=== PATIENT | male | born 1985 | race Caucasian/White ===

== ENCOUNTER 2019-10-05 14:29 | Inpatient (IN) | payer OTHER ==
[2019-10-05] MEDS ORDERED: LORazepam 1 MG TAB PO STA (14:44)
--- NOTE | 2019-10-05 14:56 | ED ---
Psych HPI - General Chief Complaint: Psychiatric Symptoms Stated Complaint: Hallucinations Time Seen by Provider: 10/05/19 14:32 Source: patient, EMS Mode of arrival: EMS - History of Present Illness Initial Comments: 34-year-old male presents today for chief complaint of paranoid behavior, hallucinations. Patient states he did meth a few days ago he states he has been paranoid and "tweeking" since. Patient states he is depressed. It was reported by EMS that family states he was seeing/hearing things that have not been present. Patient states he felt similar to this when he was on [employer] work when he did meth. Patient has no chest pain, SOB, nausea, vomiting, abdominal pain, headache, Denies head trauma or falls. Patient denies any other drug use. Remaining ROS (-). Upon arrival patient speaking rapidly, rapid hand movements appears acute psychotic. - Related Data Allergies Allergy/AdvReac Type Severity Reaction Status Date / Time No Known Allergies Allergy Verified 10/05/19 14:50 Review of Systems ROS Statement: Those systems with pertinent positive or pertinent negative responses have been documented in the HPI. ROS Other: All systems not noted in ROS Statement are negative. Past Medical History Smoking Status: Current every day smoker Past Alcohol Use History: Daily Past Drug Use History: Opiates General Exam - General Exam Comments Initial Comments: General: The patient is awake and alert, in no distress Eye: +3 mm pupils are equal, round and reactive to light, extra-ocular movements are intact. No nystagmus. There is normal conjunctiva bilaterally. No signs of icterus. Ears, nose, mouth and throat: There are moist mucous membranes and no oral lesions. Neck: The neck is supple, there is no tenderness or JVD. Cardiovascular: There is a regular rate and rhythm. No murmur, rub or gallop is appreciated. Respiratory: Lungs are clear to auscultation, respirations are non-labored, breath sounds are equal. No wheezes, stridor, rales, or rhonchi. Gastrointestinal: Soft, non-distended, non-tender abdomen without masses or organomegaly noted. There is no rebound or guarding present. Musculoskeletal: Normal ROM, no tenderness. Strength 5/5. Sensation intact. Radial pulses equal bilaterally 2+. Neurological: A&O x 3. CN II-XII intact grossly, There are no obvious motor or sensory deficits. Coordination appears grossly intact. Speech is normal. Skin: Skin is warm and dry and no rashes. Psychiatric: Cooperative, but pacing, talking to and threatening man that does not exist Limitations: altered mental status Course Vital Signs 10/05/19 10/05/19 10/05/19 14:37 14:45 15:45 Temperature 98.5 F Pulse Rate 104 H Respiratory 22 20 20 Rate Blood Pressure 148/77 O2 Sat by Pulse 100 Oximetry 10/05/19 10/05/19 10/05/19 16:45 17:00 18:00 Temperature Pulse Rate 93 Respiratory 20 20 18 Rate Blood Pressure 137/82 O2 Sat by Pulse 98 Oximetry Medical Decision Making - Medical Decision Making 34-year-old male presenting with his ventilations he admits to drug use however appears very irrational and playful speaking to the wall. He mentioned how he wanted to hurt the person he was talking to "wall"--stating hes making me made and TRUDI what i will do. Concern for safety of others/self. Patient signed in [facility] untarily for psychiatric treatment. Patient transferred to psychiatry floor for further evaluation/safety planning. - Lab Data Lab Results 10/05/19 Range/Units 18:10 Urine Opiates Screen Not Detected (NotDetected) Ur Oxycodone Screen Not Detected (NotDetected) Urine Methadone Screen Not Detected (NotDetected) Ur Propoxyphene Screen Not Detected (NotDetected) Ur Barbiturates Screen Not Detected (NotDetected) U Tricyclic Antidepress Not Detected (NotDetected) Ur Phencyclidine Scrn Not Detected (NotDetected) Ur Amphetamines Screen Detected H (NotDetected) U Methamphetamines Scrn Detected H (NotDetected) U Benzodiazepines Scrn Not Detected (NotDetected) Urine Cocaine Screen Detected H (NotDetected) U Marijuana (THC) Screen Not Detected (NotDetected) Disposition Clinical Impression: Acute psychosis Disposition: TRANSFER TO PSYCH HOSP/UNIT Condition: Serious Is patient prescribed a controlled substance at d/c from ED?: No Time of Disposition: 18:50 Decision to Admit Reason: Admit from EC Decision Date: 10/05/19 Decision Time: 18:50
[2019-10-05 18:30] LABS: Appearance,Urine Clear (Clear); Bilirubin,Urine Negative (Negative); Blood,Urine Small (Negative); Color,Urine Yellow; Glucose,Urine (UA) Negative (Negative); Ketones,Urine 2+ (Negative); Leukocyte Esterase,Urine Negative (Negative); Mucus,Urine Rare /hpf; Nitrite,Urine Negative (Negative); PH, Urine 5.5 (5.0-8.0); Protein,Urine 1+ (Negative); RBC,Urine 1 /hpf (0-5); Specific Gravity,Urine 1.033 (1.001-1.035); Urobilinogen,Urine <2.0 mg/dL (<2.0); WBC,Urine 5 /hpf (0-5)
[2019-10-05 18:45] LABS: Amphetamine Screen,Urine Detected (NotDetected); Barbiturate Screen,Urine Not Detected (NotDetected); Benzodiazepines Screen,Urine Not Detected (NotDetected); Cocaine Screen,Urine Detected (NotDetected); Methadone Screen, Urine Not Detected (NotDetected); Opiate Screen,Urine Not Detected (NotDetected); Oxycodone Screen, Urine Not Detected (NotDetected); Phencyclidine Screen,Urine Not Detected (NotDetected); Tricyclic Antidepressant,Urine Not Detected (NotDetected); Urn Cannabinoid Scrn Not Detected (NotDetected)
[2019-10-05] MEDS ORDERED: MAGNESIUM HYDROXIDE 2,400 MG/10 ML CUP PO PRN (19:43)
[2019-10-05] MEDS ORDERED: ACETAMINOPHEN TAB 325 MG TAB PO PRN (19:43)
[2019-10-05] MEDS ORDERED: MAG HYDROX/AL HYDROX/SIMETH 30 ML CUP PO PRN (19:43)
[2019-10-05] MEDS ORDERED: ZIPRASIDONE 20 MG VIAL IM PRN (19:43)
[2019-10-05] MEDS: NICOTINE 21MG/24HR PATCH TRANSDERM SCH (23:58)
--- NOTE | 2019-10-06 00:29 | P.PN ---
Progress Note - Text Progress Note Date: 10/05/19 patient did not cooperate with the interview, refused to talk and was totally ignoring me in the room and continued to sleep please notify [facility] when patient is more cooperative
[2019-10-06] MEDS: NICOTINE 21MG/24HR PATCH TRANSDERM SCH (08:54)
[2019-10-06] MEDS: LORazepam 1 MG TAB PO PRN ×2 (08:54→18:14)
--- NOTE | 2019-10-06 15:43 | P.HP ---
Psychiatric H&P - . H&P Date: 10/06/19 History & Physical: Allergies Allergy/AdvReac Type Severity Reaction Status Date / Time No Known Allergies Allergy Verified 10/05/19 19:50 Vital Signs Temp 99.3 F 10/06/19 13:00 Pulse 89 10/06/19 06:41 Resp 14 10/06/19 06:41 BP 117/58 10/06/19 06:41 Pulse Ox 96 10/05/19 19:06 Intake & Output 10/05/19 10/06/19 10/06/19 18:59 06:59 18:59 Weight 74.843 kg 68.181 kg Laboratory Last Values Urine Color Yellow 10/05/19 18:10 Urine Appearance Clear (Clear) 10/05/19 18:10 Urine pH 5.5 (5.0-8.0) 10/05/19 18:10 Ur Specific [place] 1.033 (1.001-1.035) 10/05/19 18:10 Urine Protein 1+ (Negative) H 10/05/19 18:10 Urine Glucose (UA) Negative (Negative) 10/05/19 18:10 Urine Ketones 2+ (Negative) H 10/05/19 18:10 Urine Blood Small (Negative) H 10/05/19 18:10 Urine Nitrite Negative (Negative) 10/05/19 18:10 Urine Bilirubin Negative (Negative) 10/05/19 18:10 Urine Urobilinogen <2.0 mg/dL (<2.0) 10/05/19 18:10 Ur Leukocyte Esterase Negative (Negative) 10/05/19 18:10 Urine RBC 1 /hpf (0-5) 10/05/19 18:10 Urine WBC 5 /hpf (0-5) 10/05/19 18:10 Urine Mucus Rare /hpf (None) H 10/05/19 18:10 Urine Opiates Screen Not Detected (NotDetected) 10/05/19 18:10 Ur Oxycodone Screen Not Detected (NotDetected) 10/05/19 18:10 Urine Methadone Screen Not Detected (NotDetected) 10/05/19 18:10 Ur Propoxyphene Screen Not Detected (NotDetected) 10/05/19 18:10 Ur Barbiturates Screen Not Detected (NotDetected) 10/05/19 18:10 U Tricyclic Antidepress Not Detected (NotDetected) 10/05/19 18:10 Ur Phencyclidine Scrn Not Detected (NotDetected) 10/05/19 18:10 Ur Amphetamines Screen Detected (NotDetected) H 10/05/19 18:10 U Methamphetamines Scrn Detected (NotDetected) H 10/05/19 18:10 U Benzodiazepines Scrn Not Detected (NotDetected) 10/05/19 18:10 Urine Cocaine Screen Detected (NotDetected) H 10/05/19 18:10 U Marijuana (THC) Screen Not Detected (NotDetected) 10/05/19 18:10 IDENTIFYING DATA: 34-year-old male patient HPI: Patient admitted to the inpatient psychiatric unit at [facility] on a voluntary basis with concerns of psychosis like symptoms. Patient states that on Tuesday he went to his friend's house and was drinking and also used meth he says he hasn't slept since Tuesday. He does state that he slept some yesterday and last night. Says Tuesday was the last time that he used meth. He reports that his kids mom's mom called for him to get help. He says that he asked her to call. He relates that he was having paranoid type thinking and was feeling people were out to get him. He also makes reference to having seen snipers in the trees and asked if they wanted him to go smack them. He says that he was saying these things and they were telling him that they weren't real. He says he made a promise to his family to quit drugs prior to being admitted. He makes reference that he was asking for his discharge papers in the emergency room and feels like he was tricked in the emergency room. We discussed the voluntary process and right to sign an intent to leave and that process at length. PAST PSYCHIATRIC HISTORY: He relays a history of ADHD. He had one hospitaliz ation in [place] which was a similar episode that was meth related. At that time he thought he was running from the police. He does have some history of taking extra Adderall. No known history of psychotropic medication other than when he took Seroquel on the street, which seemed to make him tired. PMH: Denies any significant medical problems ALLERGIES: No known ALLERGIES MEDICATIONS: Tylenol when necessary, Maalox when necessary, Ativan when necessary, milk of magnesia when necessary, Habitrol patch, Geodon when necessary CHEMICAL DEPENDENCY HISTORY: Patient relays that he doesn't history of cocaine use, makes reference to spending 5 years in skilled nursing. He recently used some heroin and cocaine and used meth on Tuesday. He has been to rehab a few times. FAMILY PSYCHIATRIC HISTORY: Says mom with schizophrenia, depression and bipolar disorder. He relays Brother with history of hearing voices. FAMILY CHEMICAL DEPENDENCY HISTORY: None known at this time. SOCIAL HISTORY: Currently lives with his kids were 2 and 4 in their mom. 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 He is not on disability. MENTAL STATUS EXAM: He is alert and overall cooperative with the interview. He does not show any significant degree of agitation. His mood is described as "calm." He denies any thoughts of harm to self or others. He denies any current thoughts that people are out to get him. He denies any auditory or visual hallucinations. He does describe feeling as though he was tricked in the emergency room. Cognitively appears to be grossly intact. I do not notice any significant disorientation or memory disturbance. His insight has some limitations, judgment shows evidence of recent impairment. Thought processes do show some disorganization at times during the session. STRENGTHS/WEAKNESSES: Strengths-some support; weaknesses-substance use, coping skills INTELLECTUAL FUNCTIONING: Average IMPRESSIONS: Unspecified psychotic disorder, rule out secondary to substance use PLAN: Patient will be admitted to the inpatient psychiatric unit [facility] on a voluntary basis. As above, We did discuss the voluntary process and right to sign an intent to leave and that process at length. He does seem agreeable to initiate psychotropic medication Abilify. Psychosis symptoms currently improved, we'll initiate Abilify to continue to help with any residual psychosis symptoms as well as prevent any reemergence of psychosis symptoms. We'll look into any support substance. Baseline laboratory workup done the patient and medical consultation will be ordered. He is placed on SP 15 minute precautions. Estimated length of stay is 3-5 days. Prognosis is guarded. 10/06/19 15:31
[2019-10-06] MEDS: ARIPiprazole 5 MG TAB PO SCH (15:45)
[2019-10-07 06:30] VITALS: RESP 17
[2019-10-07] MEDS: NICOTINE 21MG/24HR PATCH TRANSDERM SCH (08:21)
[2019-10-07] MEDS: ARIPiprazole 5 MG TAB PO SCH (08:21)
[2019-10-07] MEDS: LORazepam 1 MG TAB PO PRN ×2 (08:22→18:16)
--- NOTE | 2019-10-07 15:31 | P.PN ---
Progress Note - Text Progress Note Date: 10/07/19 Interval history: Patient is seen in cross coverage today. He reports that he slept well last night. He seems to be eating very well. He has had contact with his significant other and kids. He is taking the psychotropic medication and does not voice any adverse psychotropic medication side effects. Mental status exam: He is alert and cooperative with the interview. His thought processes are organized. His mood is described as fine. He denies any thoughts of harm to self or others. He denies any hallucinations. He is denying any bothersome or paranoid type thoughts. He does not display any agitation. Plan: Patient will be maintained on current dose of Abilify. Continue to mo nitor for side effects and monitor his ongoing response to treatment.
[2019-10-08] MEDS: LORazepam 1 MG TAB PO PRN ×2 (08:29→18:41)
[2019-10-08] MEDS: NICOTINE 21MG/24HR PATCH TRANSDERM SCH (08:29)
[2019-10-08] MEDS: ARIPiprazole 5 MG TAB PO SCH (08:29)
--- NOTE | 2019-10-08 12:38 | P.PN ---
Progress Note - Text Progress Note Date: 10/08/19 Interval History: Patient was seen wandering the hallways and was directable and agreeable to marissa finnegan with remote mortgage underwriter in the office. Patient claims that his mood has been gradually improving over the weekend. He states that he feels guilty about what he is done with referring to the events that led him to come in the hospital. He explained about "going back to meth" and stated that he was using approximately 2 g per day with his friend in [place] and claims that he had a "bad trip". He states that the hallucinations have been gradually improving on the medication and states that he is feeling less depressed. He states that he has been trying to go to groups and work on his coping skills. [facility] spoke with him about rehab and other treatment programs and patient declined at this time and states that he does not have a drug problem. He claims that he has slept better last night and has a fair appetite. At this time patient denies any suicidal or homical ideations, intent or plan. Patient denies any auditory, visual hallucinations and denies any paranoia or delusions. Patient denies any side effects from the medications and has been compliant with meds. Mental Status Exam: General Appearance: Patient appears to be tall/thin, stated age is alert, directable, and attempts to be cooperative. Improving hygiene. Behavior: Patient is calmly seated without any agitated behavior. Speech: Patient's speech is fluent and nonpressured. Soft tone. Mood/Affect: Mood is improving mildly, affect is congruent and constricted. Suicidality/Homicidality: Patient denies having any suicidal or homicidal ideation intent or plan. Perceptions: Patient denies any visual hallucinations and denies any auditory hallucinations Though content/process: There is no evidence of any delusional thought content and thought process is linear and goal-directed. Minimizes symptoms and drug use. Memory and concentration: AOX3, grossly intact for the purposes of this session Judgment and insight: Improving mildly Assessment Acute psychosis unspecified, rule out substance-induced psychotic episode. Methamphetamine abuse Cocaine abuse Cannabis use disorder Nicotine dependence Plan: -Patient continues to meet criteria for inpatient psychiatric admission for symptom stabilization and safety. Patient has signed adult voluntary form and medication consent and was placed in patient's chart. Patient signed a AMA form yesterday which will end on 10/10/2019. -Medications: Continue with Abilify 5 mg daily for mood stabilization/psychosis. -When necessary Ativan and Geodon for agitation/aggression. -NRT - nicotine patch -SW on board for discharge planning. Encouraged the patient to participate in milieu. [facility] offered patient rehab or other substance use services however patient declined at this time. Likely discharge tomorrow.
--- NOTE | 2019-10-08 15:53 | XR ---
EXAMINATION TYPE: XR chest 1V portable DATE OF EXAM: 10/08/2019 COMPARISON: NONE HISTORY: Cough TECHNIQUE: Single frontal view of the chest is obtained. FINDINGS: There is no focal air space opacity, pleural effusion, or pneumothorax seen. The cardiac silhouette size is within normal limits. The osseous structures are intact. IMPRESSION: 1. No acute process.
[2019-10-09] MEDS: LORazepam 1 MG TAB PO PRN (03:09)
[2019-10-09 06:44] VITALS: BP 113/64; PULSE 82; TEMP 98.5
[2019-10-09] MEDS: ARIPiprazole 5 MG TAB PO SCH (08:53)
[2019-10-09] MEDS: NICOTINE 21MG/24HR PATCH TRANSDERM SCH (08:53)
--- NOTE | 2019-10-09 09:41 | P.DS ---
Providers Date of admission: 10/05/19 18:28 Expected date of discharge: 10/09/19 Attending physician: Bear Conteh MD Consults: 10/05/19 19:43 Consult Physician Routine Consulting Provider: Too Marcelo Consult Reason/Comments: H & P and medical care Do you want consulting provider notified?: Yes Primary care physician: Stated None - Discharge Diagnosis(es) (1) Acute psychosis Current Visit: Yes Status: Acute Priority: High (2) Methamphetamine abuse Current Visit: Yes Status: Acute Priority: Medium (3) Cocaine abuse Current Visit: Yes Status: Acute Priority: Medium (4) Cannabis use disorder, mild, abuse Current Visit: Yes Status: Acute Priority: Low (5) Nicotine dependence Current Visit: Yes Status: Acute Priority: Low Hospital Course: Admission HPI: Admission note was completed by Dr. Magaña "34-year-old male patient. Patient admitted to the inpatient psychiatric unit at [facility] on a voluntary basis with concerns of psychosis like symptoms. Patient states that on Tuesday he went to his friend's house and was drinking and also used meth he says he hasn't slept since Tuesday. He does state that he slept some yesterday and last night. Says Tuesday was the last time that he used meth. He reports that his kids mom's mom called for him to get help. He says that he asked her to call. He relates that he was having paranoid type thinking and was feeling people were out to get him. He also makes reference to having seen snipers in the trees and asked if they wanted him to go smack them. He says that he was saying these things and they were telling him that they weren't real. He says he made a promise to his family to quit drugs prior to being admitted. He makes reference that he was asking for his discharge papers in the emergency room and feels like he was tricked in the emergency room. We discussed the voluntary process and right to sign an intent to leave and that process at length." Hospital course: Upon admission to the unit patient was initially psychotic and paranoid however was directable and agreeable to commence treatment. Patient signed voluntary form initially for his admission however after 2 days patient signed AMA. Patient got along well with other patients on the unit and followed unit protoco l. Patient was compliant with the medications and denied any side effects throughout hospital course. Patient was started on Abilify and titrated up to dose of 5 mg daily for mood stabilization/psychosis. Patient spoke of his stressors and engaged in therapy both group and individual. Patient was also seen by medical team for history and physical exam. Patient had a chest x-ray done for cough which did not show any acute process. Throughout the course of the hospitalization patient gradually improved with regards to mood, psychosis, sleep and became future oriented with improved insight and judgment. On the day of discharge patient denied any suicidal or homicidal ideations intent or plan denied any auditory or visual hallucinations. Patient endorsed wanting to live for his health and his family. The patient denied any access to guns or weapons. Patient denied any paranoia and did not endorse any delusions. Patient does have a significant history of substance abuse and was counseled on abstaining from all substances including alcohol and marijuana. Patient declined wanting to go to rehab for substance use however did inquire about obtaining a sponsor and other resources in the community which will be given to him upon discharge. Patient was also counseled on the medications and need for regular compliance and was encouraged to follow-up with their outpatient appointment for mental health and also for primary care. Prior to discharge a family meeting will be arranged by social scientist to answer any questions and ensure safety upon discharge. Mental status exam: General Appearance: Patient appears to be stated age is alert, directable, and cooperative. Patient is in no acute distress and has fair hygiene and grooming Behavior: Patient is calmly seated without any agitated behavior. Speech: Patient's speech is fluent and nonpressured. Mood/Affect: Patient reports their mood is "good", affect is congruent and euthymic. Suicidality/Homicidality: Patient denies having any suicidal or homicidal ideation intent or plan. Perceptions: Patient denies any auditory or visual hallucinations. Though content/process: There is no evidence of any delusional thought content or paranoia and thought process is linear and goal-directed. Memory and concentration: AOX3, grossly intact for the purposes of this session. Can spell "WORLD" backwards correctly. Judgment and insight: improved with guarded prognosis Impression: Acute psychosis unspecified Methamphetamine abuse Cocaine abuse Cannabis use disorder Nicotine dependence Plan: -Continue with discharge today as patient has improved and stabilized psychiatrically and is not currently an imminent threat to himself and/or others. -Continue medications: Abilify 5 mg daily for mood stabilization/psychosis. -Patient was counseled on the need for medication compliance and appropriate follow-up at mental health and also primary care for medical issues. Patient verbalized understanding and agreed. -Social work to arrange for and conduct family meeting to ensure safety upon discharge and answer any questions/concerns. Social work also to arrange for patients follow up appointments for psychiatric care along with follow up with primary care provider. -Patient counseled on abstaining from recreational drugs and marijuana and alcohol. Was informed/educated on the adverse effects on their physical and mental health. Patient verbally agreed and understood. Patient was offered substance abuse treatment however declined at this time and wanted to take home resources for outpatient substance use programs. -Patient was instructed to return to the hospital or seek immediate medical care if their psychiatric or medical symptoms do worsen or reoccur. Allergies Allergy/AdvReac Type Severity Reaction Status Date / Time cephalexin [From Keflex] Allergy Unknown Verified 10/08/19 17:15 ciprofloxacin [From Cipro] Allergy Unknown Verified 10/08/19 17:15 Penicillins Allergy Unknown Verified 10/08/19 17:15 Laboratory Results Urine Color Yellow 10/05/19 18:10 Urine Appearance Clear (Clear) 10/05/19 18:10 Urine pH 5.5 (5.0-8.0) 10/05/19 18:10 Ur Specific [place] 1.033 (1.001-1.035) 10/05/19 18:10 Urine Protein 1+ (Negative) H 10/05/19 18:10 Urine Glucose (UA) Negative (Negative) 10/05/19 18:10 Urine Ketones 2+ (Negative) H 10/05/19 18:10 Urine Blood Small (Negative) H 10/05/19 18:10 Urine Nitrite Negative (Negative) 10/05/19 18:10 Urine Bilirubin Negative (Negative) 10/05/19 18:10 Urine Urobilinogen <2.0 mg/dL (<2.0) 10/05/19 18:10 Ur Leukocyte Esterase Negative (Negative) 10/05/19 18:10 Urine RBC 1 /hpf (0-5) 10/05/19 18:10 Urine WBC 5 /hpf (0-5) 10/05/19 18:10 Urine Mucus Rare /hpf (None) H 10/05/19 18:10 Urine Opiates Screen Not Detected (NotDetected) 10/05/19 18:10 Ur Oxycodone Screen Not Detected (NotDetected) 10/05/19 18:10 Urine Methadone Screen Not Detected (NotDetected) 10/05/19 18:10 Ur Propoxyphene Screen Not Detected (NotDetected) 10/05/19 18:10 Ur Barbiturates Screen Not Detected (NotDetected) 10/05/19 18:10 U Tricyclic Antidepress Not Detected (NotDetected) 10/05/19 18:10 Ur Phencyclidine Scrn Not Detected (NotDetected) 10/05/19 18:10 Ur Amphetamines Screen Detected (NotDetected) H 10/05/19 18:10 U Methamphetamines Scrn Detected (NotDetected) H 10/05/19 18:10 U Benzodiazepines Scrn Not Detected (NotDetected) 10/05/19 18:10 Urine Cocaine Screen Detected (NotDetected) H 10/05/19 18:10 U Marijuana (THC) Screen Not Detected (NotDetected) 10/05/19 18:10 Coronavirus (PCR) Not Detected (Not Detectd) 10/07/19 Unknown Vital Signs Temp 98.5 F 10/09/19 06:10 Pulse 82 10/09/19 06:10 Resp 17 10/09/19 06:10 BP 113/64 10/09/19 06:10 Pulse Ox 99 10/09/19 06:10 Patient Condition at Discharge: Stable Plan - Discharge Summary New Discharge Prescriptions: New ARIPiprazole [Abilify] 5 mg PO DAILY 30 Days tab Discharge Medication List ARIPiprazole [Abilify] 5 mg PO DAILY 30 Days tab 10/09/19 [Rx] Follow up Appointment(s)/Referral(s): None,Stated [Primary Care Provider] - 1-2 days Discharge Disposition: HOME SELF-CARE
--- NOTE | 2019-10-09 19:06 | P.PN ---
Progress Note - Text Progress Note Date: 10/09/19 (delayed charting seen at 1230) Hospitalist Note Patient seen and examined . Asked to see patient by psychiatry for lesion on hand. Patient with lesion noted on his fourth finger appears to have a clot which has then had some bleeding around it with some resulting erythema. This appears to be consistent with erythema seen with healing and not reflective of a true cellulitis as it is not warm and there is no purulent drainage. Patient denies any fevers, chills, or purulent drainage. Vital signs reviewed General: non toxic, no distress, appears at stated age Derm: warm, dry Head: atraumatic, normocephalic, symmetric Eyes: EOMI, no lid lag, anicteric sclera Mouth: no lip lesion, mucus membranes moist Ext: no gross muscle atrophy, no edema, no contractures Psych: Alert, oriented, appears anxious Assessment/Plan: 1. Healing laceration of right fourth digit-recommend bacitracin cream twice daily after epison salts soaks keep wrapped and follow-up with his PCP in 3-4 days. We discussed with benefits and drawbacks of antibiotic therapy, at this point in time patient does not feel he needs oral antibiotics. I'm in agreement with him but again encouraged him to follow up with Dr. Blake in 3-4 days to ensure that more redness, warmth, or purulent drainage is not developing.
== END 2019-10-09 12:27 | disposition home or self-care (01) | DRG 885 ==
LOC: EC 14:29 → 3MHU 18:28
PROVIDERS: ADMIT Psychiatry & Neurology Psychiatry; ATTEND Psychiatry & Neurology Psychiatry
DX: F23 Brief psychotic disorder (principal); R45.851 Suicidal ideations; F32.9 Major depressive disorder, single episode, unspecified; F17.200 Nicotine dependence, unspecified, uncomplicated; F15.10 Other stimulant abuse, uncomplicated; F14.10 Cocaine abuse, uncomplicated; F12.10 Cannabis abuse, uncomplicated; S61.214A Laceration without foreign body of right ring finger without damage to nail, initial encounter; Z11.59 Encounter for screening for other viral diseases; Z79.899 Other long term (current) drug therapy; Z81.8 Family history of other mental and behavioral disorders; Z88.1 Allergy status to other antibiotic agents; Z88.0 Allergy status to penicillin
CPT/HCPCS: 71045; 80306; 81001; 82075; 87635; 99285

== ENCOUNTER 2019-10-18 06:44 | Emergency (ER) | payer OTHER ==
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
[2019-10-18 06:55] VITALS: BP 111/75; PULSE 94; RESP 18; TEMP 97.9
== END 2019-10-18 07:10 | disposition home or self-care (01) ==
LOC: EC 06:44
DX: F11.10 Opioid abuse, uncomplicated (principal); F17.200 Nicotine dependence, unspecified, uncomplicated; Z88.0 Allergy status to penicillin; Z88.1 Allergy status to other antibiotic agents
CPT/HCPCS: 99284

== ENCOUNTER 2020-03-26 14:16 | Emergency (ER) | payer MEDICAID, OTHER ==
[2020-03-26 14:23] VITALS: BP 147/84; PULSE 81; RESP 16; TEMP 98
[2020-03-26] MEDS ORDERED: HYDROmorphone 1 MG/ML 1 ML SYRINGE IVP STA ×2 (14:46→15:45)
[2020-03-26 14:52] LABS: Basophils # (A) 0.1 k/uL (0-0.2); Basophils % (A) 1 %; Eosinophils # (A) 0.1 k/uL (0-0.7); Eosinophils % (A) 1 %; HCT 43.3 % (39.0-53.0); HGB 14.5 gm/dL (13.0-17.5); Lymphocytes # (A) 1.2 k/uL (1.0-4.8); Lymphocytes % (A) 11 %; MCH 33.3 pg (25.0-35.0); MCHC 33.5 g/dL (31.0-37.0); MCV 99.3 fL (80.0-100.0); Mean Platelet Volume 8.4; Monocytes # (A) 0.7 k/uL (0-1.0); Monocytes % (A) 7 %; Neutrophils # (A) 8.9 k/uL (1.3-7.7); Neutrophils % (A) 79 %; Platelet Count 196 k/uL (150-450); RBC 4.36 m/uL (4.30-5.90); RDW 12.3 % (11.5-15.5); WBC 11.2 k/uL (3.8-10.6)
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
[2020-03-26 15:03] LABS: ALT 29 U/L (4-49); AST 36 U/L (17-59); African American GFR (CKD) >90 (>60 ml/min/1.73 sqM); Albumin 4.4 g/dL (3.5-5.0); Alcohol <10 mg/dL; Alkaline Phosphatase 70 U/L (38-126); Anion Gap 5 mmol/L; Blood Urea Nitrogen 16 mg/dL (9-20); Calcium 9.4 mg/dL (8.4-10.2); Carbon Dioxide 29 mmol/L (22-30); Chloride 103 mmol/L (98-107); Creatine Kinase 389 U/L (55-170); Glucose 142 mg/dL (74-99); Non-African American GFR(CKD) >90 (>60 ml/min/1.73 sqM); Potassium 4.1 mmol/L (3.5-5.1); Sodium 137 mmol/L (137-145); Total Bilirubin 0.8 mg/dL (0.2-1.3)
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
[2020-03-26 15:05] LABS: INR 0.9 (<1.2); Partial Thromboplastin Time 24.9 sec (22.0-30.0); Prothrombin Time 9.6 sec (9.0-12.0)
[2020-03-26] MEDS ORDERED: PROPARACAINE 0.5% OPHTH DROPS 15 ML BTL RIGHT EYE STA (15:06)
[2020-03-26] MEDS ORDERED: DIPH,PERTUS(ACELL)TETVAC-LF 0.5 ML VIAL IM ONE (15:25)
[2020-03-26] MEDS ORDERED: CLINDAMYCIN 600 MG in DEXTROSE 5% IN WATER 50 ML IVPB STA ×2 (15:26)
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
[2020-03-26 16:31] LABS: Appearance,Urine Clear (Clear); Bilirubin,Urine Negative (Negative); Blood,Urine Negative (Negative); Color,Urine Yellow; Glucose,Urine (UA) Negative (Negative); Ketones,Urine Negative (Negative); Leukocyte Esterase,Urine Negative (Negative); Nitrite,Urine Negative (Negative); PH, Urine 6.5 (5.0-8.0); Protein,Urine Trace (Negative); Urobilinogen,Urine <2.0 mg/dL (<2.0)
[2020-03-26 16:34] LABS: Amphetamine Screen,Urine Detected (NotDetected); Barbiturate Screen,Urine Not Detected (NotDetected); Benzodiazepines Screen,Urine Not Detected (NotDetected); Cocaine Screen,Urine Not Detected (NotDetected); Methadone Screen, Urine Not Detected (NotDetected); Opiate Screen,Urine Detected (NotDetected); Oxycodone Screen, Urine Not Detected (NotDetected); Phencyclidine Screen,Urine Not Detected (NotDetected); Tricyclic Antidepressant,Urine Not Detected (NotDetected); Urn Cannabinoid Scrn Detected (NotDetected)
[2020-03-26 16:37] LABS: Specific Gravity,Urine >1.050 (1.001-1.035)
== END 2020-03-26 16:25 | disposition other institution (70) ==
LOC: EC 14:16
DX: S02.841A Fracture of lateral orbital wall, right side, initial encounter for closed fracture (principal); S42.101A Fracture of unspecified part of scapula, right shoulder, initial encounter for closed fracture; F15.10 Other stimulant abuse, uncomplicated; M25.511 Pain in right shoulder; S02.91XA Unspecified fracture of skull, initial encounter for closed fracture; S02.2XXA Fracture of nasal bones, initial encounter for closed fracture; F17.200 Nicotine dependence, unspecified, uncomplicated; G93.89 Other specified disorders of brain; Z88.0 Allergy status to penicillin; Z88.1 Allergy status to other antibiotic agents; V27.4XXA Motorcycle driver injured in collision with fixed or stationary object in traffic accident, initial encounter; Y92.410 Unspecified street and highway as the place of occurrence of the external cause
CPT/HCPCS: 36415; 93005; 86900; 86901; 80053; 82550; 84484; 85025; 85610; 85730; 86850; 81003; 80306; 72170; 73030; 71045; 72125; 70486; 70450; 71260; 74177; 99291; 96365; 96375 ×2; L0120; G0480; J1170; Q9967; 80320

== ENCOUNTER 2020-06-10 03:30 | Emergency (ER) | payer OTHER ==
[2020-06-10 03:39] VITALS: RESP 18; TEMP 98
[2020-06-10] MEDS ORDERED: LORazepam 1 MG TAB PO STA (04:04)
[2020-06-10 04:08] LABS: Amphetamine Screen,Urine Detected (NotDetected); Barbiturate Screen,Urine Not Detected (NotDetected); Benzodiazepines Screen,Urine Not Detected (NotDetected); Cocaine Screen,Urine Not Detected (NotDetected); Methadone Screen, Urine Not Detected (NotDetected); Opiate Screen,Urine Not Detected (NotDetected); Oxycodone Screen, Urine Not Detected (NotDetected); Phencyclidine Screen,Urine Not Detected (NotDetected); Tricyclic Antidepressant,Urine Not Detected (NotDetected); Urn Cannabinoid Scrn Not Detected (NotDetected)
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
[2020-06-10 10:37] VITALS: BP 132/79; PULSE 89
== END 2020-06-10 10:36 | disposition home or self-care (01) ==
LOC: EC 03:30
DX: F23 Brief psychotic disorder (principal); F15.10 Other stimulant abuse, uncomplicated; Z88.0 Allergy status to penicillin; Z88.1 Allergy status to other antibiotic agents
CPT/HCPCS: 80306; 82075; 99285

== ENCOUNTER 2020-08-03 05:25 | Emergency (ER) | payer OTHER ==
[2020-08-03] MEDS ORDERED: LORazepam 2 MG/ML INJ IV STA ×2 (05:28→05:29)
[2020-08-03] MEDS ORDERED: SODIUM CHLORIDE 0.9% 1,000 ML IV STA (05:28)
[2020-08-03] MEDS ORDERED: DIPH,PERTUS(ACELL)TETVAC-LF 0.5 ML VIAL IM ONE (05:28)
[2020-08-03 05:34] VITALS: BP 151/96; PULSE 125; RESP 24; TEMP 98.5
[2020-08-03 05:35] LABS: Glucose,Whole Blood 141 mg/dL (75-99)
[2020-08-03 05:44] LABS: Basophils # (A) 0.1 k/uL (0-0.2); Basophils % (A) 0 %; Eosinophils # (A) 0.2 k/uL (0-0.7); Eosinophils % (A) 1 %; HCT 43.3 % (39.0-53.0); HGB 14.2 gm/dL (13.0-17.5); Lymphocytes % (A) 10 %; MCH 31.6 pg (25.0-35.0); MCHC 32.8 g/dL (31.0-37.0); MCV 96.5 fL (80.0-100.0); Mean Platelet Volume 8.5; Monocytes # (A) 1.2 k/uL (0-1.0); Monocytes % (A) 7 %; Neutrophils # (A) 15.3 k/uL (1.3-7.7); Neutrophils % (A) 81 %; Platelet Count 238 k/uL (150-450); RBC 4.49 m/uL (4.30-5.90); RDW 12.5 % (11.5-15.5)
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
[2020-08-03 05:56] LABS: ALT 69 U/L (4-49); AST 225 U/L (17-59); African American GFR (CKD) 68 (>60 ml/min/1.73 sqM); Alcohol <10 mg/dL; Alkaline Phosphatase 93 U/L (38-126); Anion Gap 17 mmol/L; Blood Urea Nitrogen 33 mg/dL (9-20); Calcium 9.6 mg/dL (8.4-10.2); Carbon Dioxide 18 mmol/L (22-30); Chloride 101 mmol/L (98-107); Glucose 136 mg/dL (74-99); Non-African American GFR(CKD) 59 (>60 ml/min/1.73 sqM); Potassium 4.3 mmol/L (3.5-5.1); Sodium 136 mmol/L (137-145); Total Bilirubin 1.1 mg/dL (0.2-1.3); Total Protein 7.6 g/dL (6.3-8.2)
[2020-08-03 06:01] LABS: INR 0.9 (<1.2); Prothrombin Time 10.1 sec (9.0-12.0)
[2020-08-03 06:04] LABS: Partial Thromboplastin Time 18.5 sec (22.0-30.0)
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
[2020-08-03 06:33] LABS: Creatine Kinase 11054 U/L (55-170)
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
== END 2020-08-03 06:15 | disposition other institution (70) ==
LOC: EC 05:25
DX: S11.93XA Puncture wound without foreign body of unspecified part of neck, initial encounter (principal); F15.10 Other stimulant abuse, uncomplicated; Z88.0 Allergy status to penicillin; Z87.891 Personal history of nicotine dependence; W34.00XA Accidental discharge from unspecified firearms or gun, initial encounter
CPT/HCPCS: 36415; 93005; 86900; 86901; 80053; 82550; 83605; 84484; 85025; 85610; 85730; 86850; 71045; 72125; 70450; 70498; 90715; 99284; 96374; 96361; 90471; L0120; G0480; J2060; 80320

== ENCOUNTER 2020-12-09 18:16 | Emergency (ER) | payer OTHER ==
[2020-12-09] MEDS ORDERED: ORPHENADRINE 30 MG/ML 2 ML VIAL IVP STA (19:16)
[2020-12-09] MEDS ORDERED: KETOROLAC 15 MG/ML 1 ML VIAL IVP STA (19:16)
[2020-12-09] MEDS ORDERED: SODIUM CHLORIDE 0.9% 1,000 ML IV STA (19:16)
[2020-12-09] MEDS ORDERED: ONDANSETRON 4 MG/2 ML VIAL IVP STA (19:16)
--- NOTE | 2020-12-09 19:49 | ED ---
General Adult HPI - General Chief complaint: Urogenital Stated complaint: elbow swelling & pain Time Seen by Provider: 12/09/20 19:02 Source: patient, RN notes reviewed Mode of arrival: ambulatory Limitations: no limitations - History of Present Illness Initial comments: 35-year-old male presents to the emergency Department with chief complaint of right elbow swelling, pain, flank pain. Patient states started a few days ago gradually gotten worse. Patient states not improving at home. Denies any trauma to his elbow that she may have bumped it on something. Has appears or chills no history of gout. Patient denies hematuria, dysuria, kidney stone history, nausea vomiting diarrhea constipation patient states pain is slightly worse when he lays down, with movement. Denies any bowel bladder incontinence or retention - Related Data Home Medications Medication Instructions Recorded Confirmed Acetaminophen Tab [Tylenol] 975 mg PO Q4H PRN 03/26/20 06/10/20 Previous Rx's Medication Instructions Recorded Cyclobenzaprine [Flexeril] 10 mg PO TID PRN #15 tab 12/09/20 Ibuprofen [Motrin] 600 mg PO Q8HR PRN #20 tab 12/09/20 Allergies Allergy/AdvReac Type Severity Reaction Status Date / Time cephalexin [From Keflex] Allergy Unknown Verified 12/09/20 18:27 ciprofloxacin [From Cipro] Allergy Unknown Verified 12/09/20 18:27 Penicillins Allergy Unknown Verified 12/09/20 18:27 Review of Systems ROS Statement: Those systems with pertinent positive or pertinent negative responses have been documented in the HPI. ROS Other: All systems not noted in ROS Statement are negative. Past Medical History Past Medical History: No Reported History History of Any Multi-Drug Resistant Organisms: None Reported Past Surgical History: No Surgical Hx Reported Past Psychological History: ADD/ADHD Smoking Status: Former smoker Past Alcohol Use History: Occasional Past Drug Use History: Opiates General Exam Limitations: no limitations General appearance: alert, in no apparent distress Head exam: Present: atraumatic, normocephalic, normal inspection Respiratory exam: Present: normal lung sounds bilaterally. Absent: respiratory distress, wheezes, rales, rhonchi, stridor Cardiovascular Exam: Present: regular rate, normal rhythm, normal heart sounds. Absent: systolic murmur, diastolic murmur, rubs, gallop, clicks GI/Abdominal exam: Present: soft, normal bowel sounds. Absent: distended, tenderness, guarding, rebound, rigid Extremities exam: Present: other (Right elbow there is moderate swelling over the olecranon process, full range of motion neurovascular intact minimal erythema) Back exam: Present: CVA tenderness (R). Absent: CVA tenderness (L) Course Vital Signs 12/09/20 18:25 Temperature 98.3 F Pulse Rate 78 Respiratory 18 Rate Blood Pressure 120/72 O2 Sat by Pulse 98 Oximetry Medical Decision Making - Medical Decision Making 35-year-old presents from pain, back pain. Patient workup is negative this time does feel improved after medications. Patient we discharged with anti- inflammatories, right elbow Teo wrap. Patient will follow-up with orthopedics if no improvement. Return parameters were discussed. - Lab Data Result diagrams: 12/09/20 19:36 12/09/20 19:36 Lab Results 12/09/20 12/09/20 12/09/20 Range/Units 19:36 19:36 19:36 WBC 9.7 (3.8-10.6) k/uL RBC 3.75 L (4.30-5.90) m/uL Hgb 12.5 L (13.0-17.5) gm/dL Hct 36.1 L (39.0-53.0) % MCV 96.2 (80.0-100.0) fL MCH 33.3 (25.0-35.0) pg MCHC 34.6 (31.0-37.0) g/dL RDW 12.0 (11.5-15.5) % Plt Count 198 (150-450) k/uL MPV 8.8 Neutrophils % 69 % Lymphocytes % 20 % Monocytes % 6 % Eosinophils % 3 % Basophils % 0 % Neutrophils # 6.7 (1.3-7.7) k/uL Lymphocytes # 1.9 (1.0-4.8) k/uL Monocytes # 0.6 (0-1.0) k/uL Eosinophils # 0.3 (0-0.7) k/uL Basophils # 0.0 (0-0.2) k/uL Sodium 138 (137-145) mmol/L Potassium 4.6 (3.5-5.1) mmol/L Chloride 102 (98-107) mmol/L Carbon Dioxide 30 (22-30) mmol/L Anion Gap 6 mmol/L BUN 21 H (9-20) mg/dL Creatinine 0.86 (0.66-1.25) mg/dL Est GFR (CKD-EPI)AfAm >90 (>60 ml/min/1.73 sqM) Est GFR (CKD-EPI)NonAf >90 (>60 ml/min/1.73 sqM) Glucose 102 H (74-99) mg/dL Calcium 9.0 (8.4-10.2) mg/dL Total Bilirubin 0.1 L (0.2-1.3) mg/dL AST 23 (17-59) U/L ALT 22 (4-49) U/L Alkaline Phosphatase 76 (38-126) U/L Total Protein 6.1 L (6.3-8.2) g/dL Albumin 3.8 (3.5-5.0) g/dL Amylase 47 (30-110) U/L Lipase 72 (23-300) U/L Urine Color Yellow Urine Appearance Clear (Clear) Urine pH 5.5 (5.0-8.0) Ur Specific Hazel 1.033 (1.001-1.035) Urine Protein Trace H (Negative) Urine Glucose (UA) Negative (Negative) Urine Ketones Negative (Negative) Urine Blood Negative (Negative) Urine Nitrite Negative (Negative) Urine Bilirubin Negative (Negative) Urine Urobilinogen <2.0 (<2.0) mg/dL Ur Leukocyte Esterase Negative (Negative) Disposition Clinical Impression: Olecranon bursitis, right elbow, Lumbar back pain Disposition: HOME SELF-CARE Condition: Stable Instructions (If sedation given, give patient instructions): Elbow Bursitis (ED) Additional Instructions: Please return to the Emergency Department if symptoms worsen or any other concerns. Prescriptions: Cyclobenzaprine [Flexeril] 10 mg PO TID PRN #15 tab PRN Reason: Muscle Spasm Ibuprofen [Motrin] 600 mg PO Q8HR PRN #20 tab PRN Reason: Pain Is patient prescribed a controlled substance at d/c from ED?: No Referrals: None,Stated [Primary Care Provider] - 1-2 days Miguel Dickey MD [STAFF PHYSICIAN] - 1-2 days Time of Disposition: 20:17
[2020-12-09 19:50] LABS: Basophils % (A) 0 %; Eosinophils # (A) 0.3 k/uL (0-0.7); Eosinophils % (A) 3 %; HCT 36.1 % (39.0-53.0); HGB 12.5 gm/dL (13.0-17.5); Lymphocytes # (A) 1.9 k/uL (1.0-4.8); Lymphocytes % (A) 20 %; MCH 33.3 pg (25.0-35.0); MCHC 34.6 g/dL (31.0-37.0); MCV 96.2 fL (80.0-100.0); Mean Platelet Volume 8.8; Monocytes # (A) 0.6 k/uL (0-1.0); Monocytes % (A) 6 %; Neutrophils # (A) 6.7 k/uL (1.3-7.7); Neutrophils % (A) 69 %; Platelet Count 198 k/uL (150-450); RBC 3.75 m/uL (4.30-5.90); WBC 9.7 k/uL (3.8-10.6)
[2020-12-09 19:55] LABS: Appearance,Urine Clear (Clear); Bilirubin,Urine Negative (Negative); Blood,Urine Negative (Negative); Color,Urine Yellow; Glucose,Urine (UA) Negative (Negative); Ketones,Urine Negative (Negative); Leukocyte Esterase,Urine Negative (Negative); Nitrite,Urine Negative (Negative); PH, Urine 5.5 (5.0-8.0); Protein,Urine Trace (Negative); Specific Gravity,Urine 1.033 (1.001-1.035); Urobilinogen,Urine <2.0 mg/dL (<2.0)
[2020-12-09 20:00] LABS: ALT 22 U/L (4-49); AST 23 U/L (17-59); African American GFR (CKD) >90 (>60 ml/min/1.73 sqM); Albumin 3.8 g/dL (3.5-5.0); Alkaline Phosphatase 76 U/L (38-126); Amylase 47 U/L (30-110); Anion Gap 6 mmol/L; Blood Urea Nitrogen 21 mg/dL (9-20); Carbon Dioxide 30 mmol/L (22-30); Chloride 102 mmol/L (98-107); Glucose 102 mg/dL (74-99); Lipase 72 U/L (23-300); Non-African American GFR(CKD) >90 (>60 ml/min/1.73 sqM); Potassium 4.6 mmol/L (3.5-5.1); Sodium 138 mmol/L (137-145); Total Bilirubin 0.1 mg/dL (0.2-1.3); Total Protein 6.1 g/dL (6.3-8.2)
[2020-12-09] MEDS ORDERED: ACET/COD 300 MG/30 MG STARTER PACK 6 TAB BTL PO STA (20:17)
[2020-12-09] MEDS ORDERED: CYCLOBENZAPRINE 10MG STARTER 3 TAB BTL PO STA (20:36)
[2020-12-09 20:48] VITALS: BP 119/74; PULSE 71; RESP 19; TEMP 97.7
== END 2020-12-09 20:46 | disposition home or self-care (01) ==
LOC: EC 18:16
DX: M70.21 Olecranon bursitis, right elbow (principal); M54.5 Low back pain; R10.9 Unspecified abdominal pain; F90.9 Attention-deficit hyperactivity disorder, unspecified type; Z87.891 Personal history of nicotine dependence; Z79.1 Long term (current) use of non-steroidal anti-inflammatories (NSAID); Z88.0 Allergy status to penicillin; Z88.1 Allergy status to other antibiotic agents
CPT/HCPCS: 36415; 80053; 82150; 83690; 85025; 81003; 99284; 96374; 96375 ×2; J2360; J2405; J1885